=== PATIENT | female | born 1965 | race Caucasian/White ===

== ENCOUNTER 2019-02-25 07:33 | Day surgery (SDC) | payer BC ==
[~2019-02-25] VITALS: Ht 175.3 cm; Wt 79.4 kg
[2019-02-25] VITALS (21 sets, daily range): BP systolic 98–116; BP diastolic 53–96; PULSE 62–80; RESP 12–67; Ht 175.3 cm; Wt 79.4 kg
--- NOTE | 2019-02-25 06:00 | HPN ---
Date/Time of Note Date/Time of Note DATE: 02/25/19 TIME: 06:00 Interval H&P Admission Note Pt. seen H&P reviewed: No system changes HIPOLITO LOMBARDI MD Feb 25, 2019 06:00
--- NOTE | 2019-02-25 06:06 | OPR ---
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 Right hamstring tendon partial tearing 2. Right hip ischial bursitis 3. Right hip sciatic nerve entrapment Operation/Procedure Performed 1. Right open hamstring repair 2. Right open ischial bursectomy 3. Right hip open sciatic nerve neurolysis 4. Right hip injection of PRP solution Surgeon see signature line Biomedical Instrument Technician Teodoro Reyes PA-C Anesthesia Type: general Estimated Blood Loss: 50 - 100 ml's Transfusion none Specimen None Grafts/Implants See operative note Complications none Pt Condition Post Procedure: stable Disposition: PACU Procedure Description COLLECTIONS SPECIALIST SURGEON: Teodoro Reyes PA-C was asked to be present at my request as a result of the complexity associated with this procedure including positioning of the extremity, positioning of the instrumentation and protection of the neurovascular structures. In my opinion, the assistance offered by a certified surgical tech/first assistant is insufficient and Eliezerniyah should be compensated for his time. PROCEDURE IN DETAIL: Following obtaining complete consent from the patient and explained the possibility of sciatic nerve injury the right side was appropriately identified. The right antecubital fossa was prepped and draped and 60 cc of blood were then aspirated from the antecubital fossa. The blood was then transferred to the digital sales representative from the company for preparation of the PRP solution. Following the administration of general endotracheal anesthesia the patient was placed in the prone position. All prominences were padded. The right hip was then identified and a local block was then performed using the preoperative cocktail that had been prepared. This included Duramorph. Sterile prep and drape was then undertaken. The inferior aspect of the gluteus dario was then identified and it was elevated and retracted. The ischial prominence was then identified and the area of the hamstring tearing noted with significant softening at the origin. Further laterally, the sciatic nerve was then identified and was seen to be encased in a significant amount of scar tissue. The sciatic nerve was then mobilized and a complete neurolysis was then performed in order to mobilize the nerve and to free it up from the adhesions. The nerve was then protected throughout the rest of the case. The lesser trochanter was then identified. There was palpable impingement between the ischium and the trochanter. The hamstring sheath was then identified and incised. Degenerative changes of the hamstring avulsion were then debrided. Severe bursal reactive tissue was noted in the ischial bursa. The ischial bursa was then excised in its entirety and the lateral aspect of the ischium was then prepared by curetting the area down to a bleeding bed. In addition, the felicitas was then employed to resect a portion of the lateral aspect of the ischium in order to improve the clearance for the ischiofemoral space. Approximately 5 mm of the lateral wall resected. Following preparation, two triple loaded titanium anchors were then inserted into the lateral ischium these were 5.5 mm anchors. All of the sutures were then passed through the hamstring and a solid repair was completed. Once again, the sciatic nerve was identified and noted to have no significant entrapment. The wound was irrigated thoroughly. The wound was then closed in layers and a Prenio for the final cover. This was watertight. Estimated blood loss was procedure was 100 cc. Postoperative radiographs will be obtained in the [facility] room. HIPOLITO LOMBARDI MD Feb 25, 2019 06:06
[~2019-02-25 07:33] MED LIST: BUPIVACAINE 0.5% (SDV) 30 ML, morphine SULFATE (PF) 8 MG, EPINEPHrine 0.3 MG, KETOROLAC... IRR SCH; CEFAZOLIN 2 GM/50 ML (PMX) 50 ML IVPB ONE; DEXAMETHASONE 1 MG TAB PO ONE; GABAPENTIN 300 MG CAP PO ONE; SOD CHLORIDE 0.9% 100 ML, TRANEXAMIC ACID 3,000 MG IRR ONE; TRANEXAMIC ACID 1GM/100ML(PMX) 100 ML IVPB ONE
[2019-02-25] MEDS ORDERED: ASPI81TA52 PO (08:24)
[2019-02-25] MEDS ORDERED: GABA300C16 PO (08:25)
[2019-02-25] MEDS ORDERED: LACTATED RINGER'S 1,000 ML IV SCH (09:00)
--- NOTE | 2019-02-25 09:22 | PREAC ---
Date/Time of Note Date/Time of Note DATE: 02/25/19 TIME: 09:21 Anesthesia Eval and Record Evaluation Time Pre-Procedure Interview DATE: 02/25/19 TIME: 09:21 Age 53 Sex female NPO: 8 hrs Preoperative diagnosis hamstring pain Planned procedure hamstring repair Past Medical History Past Medical History: Includes Neuro: Other (spontanious carotid artery rupture/dissection) Surgery & Anesthesia Issues No known issue Meds Anticoagulation: No Beta Chelsi within 24 hr: No Reason Beta Chelsi not given: Pt. not on B-Chelsi Reported Medications Gabapentin* (Gabapentin*) 300 Mg Capsule, 600 MG PO BID, #180 CAP 02/25/19 Aspirin (Low Dose Aspirin) 81 Mg Tablet.dr, 81 MG PO DAILY, #30 TAB 02/25/19 Current Medications Bupivacaine HCl/ Morphine Sulfate/ Epinephrine/ Ketorolac Tromethamine/ Clonidine HCl/ Sodium Chloride/ Vancomycin HCl INTRA-OP IRR ; Start 02/25/19 at 06:00 Lactated Ringer's 1,000 ml @ 0 mls/hr Q0M IV Last administered on 02/25/19at 08:51; Admin Dose 0 MLS/HR; Start 02/25/19 at 09:00 Meds reviewed: Yes Allergies Coded Allergies: No Known Allergy (Unverified , 02/25/19) Allergies Reviewed: Yes Labs/Studies Labs Reviewed: Reviewed by anesthesiologist test: Negative Studies: ECG Pre-procedure Exam Last vitals Vital Signs Date Temp Pulse Resp B/P (MAP) Pulse Ox O2 O2 Flow FiO2 Time Delivery Rate 02/25/19 97.9 67 67 107/64 100 Room Air 08:47 (78) Airway: Adequate mouth opening, Adequate thyromental dist Mallampati: Mallampati II Teeth: Normal Lung: Normal Heart: Normal ASA Physical Status ASA physical status: 3 Emergency: None Planned Anesthetic General/MAC: ETT Pre-operative Attestations Prior to commencing anesthesia and surgery, the patient was re-evaluated, there was verification of: *The patient's identity *The results of appropriate recent lab work and preoperative vital signs *The above evaluation not changing prior to induction *Anesthetic plan, risk benefits, alternative and complications discussed with patient/family; questions answered; patient/family understands, accepts and wishes to proceed. GRADY LUCAS Feb 25, 2019 09:22
[2019-02-25] MEDS ORDERED: FENTAnyl 50 MCG/ML VIAL IV PRN ×2 (09:30)
[2019-02-25] MEDS ORDERED: ONDANSETRON 4 MG INJ IV PRN (09:30)
[2019-02-25] MEDS ORDERED: METOCLOPRAMIDE 10 MG INJ IV PRN (09:30)
[2019-02-25] MEDS ORDERED: ALBUTEROL 0.083% (NEB) 2.5 MG/3 ML AMP HHN PRN (09:30)
[2019-02-25] MEDS ORDERED: HYDROmorphONE 1 MG/5 ML IV SYRINGE IV PRN ×3 (09:30)
[2019-02-25] MEDS ORDERED: MEPERIDINE 25 MG INJ IV PRN (09:30)
[2019-02-25] MEDS ORDERED: DIPHENHYDRAMINE 50 MG INJ IV PRN (09:30)
[2019-02-25] MEDS ORDERED: FENTAnyl 50 MCG/ML VIAL ONE (09:33)
[2019-02-25] MEDS ORDERED: POLYMYXIN/BACITRACIN 1L IRRIG ONE (10:10)
[2019-02-25] MEDS ORDERED: THROMBIN 5000 UNIT VIAL ONE (10:10)
[2019-02-25] MEDS ORDERED: CA CHLORIDE 10% 10 ML SYRINGE ONE (10:11)
[2019-02-25] MEDS ORDERED: ROCURONIUM 50 MG INJ ONE (10:17)
[2019-02-25] MEDS ORDERED: SUCCINYLCHOLINE CHLORIDE 100 MG/5 ML SYG IV ONE (10:17)
[2019-02-25] MEDS ORDERED: CEFAZOLIN 1 GM INJ ONE (10:17)
[2019-02-25] MEDS ORDERED: PROPOFOL 20 ML ONE (10:17)
[2019-02-25] MEDS ORDERED: LIDOCAINE 100 MG SYRINGE ONE (10:17)
[2019-02-25] MEDS ORDERED: SUGAMMADEX SODIUM 200 MG/2 ML VIAL IV ONE (10:48)
--- NOTE | 2019-02-25 11:04 | PDOCDIS ---
Discharge Instructions DIAGNOSIS Discharge Diagnosis Hamstring tear with sciatic nerve entrapment CONDITION [id number] Patient Condition: [id number] Good HOME CARE INSTRUCTIONS: [id number] Diet Instructions: [id number] Regular ACTIVITY: [id number] Activity Restrictions: [id number] Slowly Increase Activity Keep Limb Elevated [id number] Bathing Restrictions: [id number] Shower FOLLOW UP/APPOINTMENTS Follow-up Plan 2 weeks in the office SCHOOL/WORK RELEASE May return to School/Work with: With Restrictions School/Work Release Comment: Foot flat weightbearing for 4 weeks with crutches HIPOLITO LOMBARDI MD Feb 25, 2019 11:04
--- NOTE | 2019-02-25 15:54 | PAC ---
Date/Time of Note Date/Time of Note DATE: 02/25/19 TIME: 15:54 Post-Anesthesia Notes Post-Anesthesia Note Last documented vital signs Vital Signs Date Temp Pulse Resp B/P (MAP) Pulse Ox O2 O2 Flow FiO2 Time Delivery Rate 02/25/19 97.6 62 18 109/60 98 Room Air 12:40 (76) 02/25/19 2.0 11:35 Activity: WNL Respiratory function: WNL Cardiovascular function: WNL Mental status: Baseline Pain reasonably controlled: Yes Hydration appropriate: Yes Nausea/Vomiting absent: Yes GRADY LUCAS Feb 25, 2019 15:54
== END 2019-02-25 14:19 | disposition home or self-care (01) ==
LOC: SUR 07:33 → SDS 07:33 → EDSTATUS 09:00 → SUR 14:19
PROVIDERS: ATTEND Orthopaedic Surgery
DX: S76.311D Strain of muscle, fascia and tendon of the posterior muscle group at thigh level, right thigh, subsequent encounter (principal); M70.71 Other bursitis of hip, right hip; X58.XXXD Exposure to other specified factors, subsequent encounter; G58.8 Other specified mononeuropathies
CPT/HCPCS: 27060; 64712; 86999; J0171; J0690; J1170; J1885; J2001; J2274; J2405; J3010; J3370